=== PATIENT | female | born 1985 | race Caucasian/White ===

== ENCOUNTER 2018-10-10 23:21 | Emergency (ER) | payer OTHER ==
[~2018-10-10] VITALS: Ht 160 cm; Wt 72.6 kg
[2018-10-11] MEDS ORDERED: NEURONTIN300 MG (00:13)
[2018-10-11] MEDS ORDERED: BUDEO.25 (00:15)
[2018-10-11] MEDS ORDERED: ALBUTEROL0.63 MG/3 (00:15)
[2018-10-11] MEDS ORDERED: ALBUTEROL2.5 MG/3 M IH (07:41)
[2018-10-11] MEDS ORDERED: SYMBICORT 16010.2 GM IH (07:41)
== END 2018-10-11 07:55 ==
LOC: ER 23:21
DX: J40 Bronchitis, not specified as acute or chronic (principal)

== ENCOUNTER 2018-12-08 11:00 | Emergency (ER) | payer OTHER ==
[~2018-12-08] VITALS: Ht 160 cm; Wt 75.7 kg
[~2018-12-08 11:00] MED LIST: ALBUTEROL0.63 MG/3; ALBUTEROL2.5 MG/3 M IH; BUDEO.25; NEURONTIN300 MG; SYMBICORT 16010.2 GM IH
[2018-12-08] MEDS ORDERED: WELLBUTRIN SR100 MG PO (11:22)
[2018-12-08] MEDS ORDERED: XANAX1 MG PO (11:22)
[2018-12-08] MEDS ORDERED: REMERON15 MG PO (11:23)
[2018-12-08] MEDS ORDERED: CYMBALTA60 MG PO (11:23)
== END 2018-12-08 16:15 | disposition home or self-care (01) ==
LOC: ER 11:00
DX: K59.09 Other constipation (principal)

== ENCOUNTER 2019-02-09 14:10 | Emergency (ER) | payer OTHER ==
[~2019-02-09] VITALS: Ht 160 cm; Wt 77.1 kg
[~2019-02-09 14:10] MED LIST changes: +CYMBALTA60 MG PO; +REMERON15 MG PO; +WELLBUTRIN SR100 MG PO; +XANAX1 MG PO
[2019-02-09] MEDS ORDERED: ATROVENT HFA12.9 GM (14:28)
[2019-02-09] MEDS ORDERED: ALBUTEROL0.63 MG/3 (14:28)
[2019-02-09] MEDS ORDERED: MEDROLPACK (14:29)
[2019-02-09] MEDS ORDERED: LEVAQUIN500 MG (14:29)
[2019-02-09] MEDS ORDERED: PREDNISONE2.5 MG (14:29)
== END 2019-02-09 16:49 | disposition home or self-care (01) ==
LOC: ER 14:10
DX: R06.02 Shortness of breath (principal)

== ENCOUNTER 2019-03-26 13:39 | Emergency (ER) | payer OTHER ==
[~2019-03-26] VITALS: Ht 160 cm; Wt 77.1 kg
[~2019-03-26 13:39] MED LIST changes: +ATROVENT HFA12.9 GM; +LEVAQUIN500 MG; +MEDROLPACK; +PREDNISONE2.5 MG
[2019-03-26] MEDS ORDERED: MAXALT MLT5 MG PO (19:47)
[2019-03-26] MEDS ORDERED: SKELAXIN800 MG PO (19:47)
== END 2019-03-26 20:08 | disposition home or self-care (01) ==
LOC: ER 13:39
DX: G43.909 Migraine, unspecified, not intractable, without status migrainosus (principal); M62.838 Other muscle spasm

== ENCOUNTER 2019-06-06 08:38 | Emergency (ER) | payer OTHER ==
[~2019-06-06] VITALS: Ht 165.1 cm; Wt 67.6 kg
[~2019-06-06 08:38] MED LIST changes: +MAXALT MLT5 MG PO; +SKELAXIN800 MG PO
== END 2019-06-06 09:42 | disposition home or self-care (01) ==
LOC: ER 08:38
DX: M62.838 Other muscle spasm (principal); G43.909 Migraine, unspecified, not intractable, without status migrainosus